=== PATIENT | female | born 1970 | race Caucasian/White ===

== ENCOUNTER 2019-04-15 09:04 | Outpatient (CLI) | payer BC ==
[2019-04-15 12:16] LABS: Hemoglobin 14.5 g/dL (12.0-16.0); Mean Corpuscular HGB CONC 32.7 g/dL (32.0-36.0); Mean Corpuscular Hemoglobin 30.4 pg (27.0-31.0); Mean Corpuscular Volume 92.8 fL (78.0-98.0); Mean Platelet Volume 8.8 fL (7.4-10.4); Platelet Count 272 thou/uL (130-400); RBC Distribution Width 11.6 % (11.5-14.5); Red Blood Cell (RBC) Count 4.78 mill/uL (4.20-5.40); White Blood Cell (WBC) Count 6.4 thou/uL (4.8-10.8)
[2019-04-15 12:33] LABS: Anion Gap 13 mmol/L (10-20); BUN (Urea Nitrogen) 12 mg/dL (7.0-18.7); Calc. Creatinine Clearance 0 mL/min (70-130); Calcium 9.7 mg/dL (7.8-10.44); Carbon Dioxide 23 mmol/L (22-29); Chloride 105 mmol/L (98-107); Estimated GFR-MDRD 67; Glucose 111 mg/dL (70-105); Potassium 4.1 mmol/L (3.5-5.1); Sodium 137 mmol/L (136-145)
[2019-04-15 12:38] LABS: BHCG - Serum Negative (NEGATIVE); Pregs Control Background? CLEAR/WHITE (CLR/WHITE); Pregs Control Bar Appear? YES (CONTROL BAR)
== END 2019-04-15 09:05 | disposition home or self-care (01) ==
LOC: LABBT 09:04
PROVIDERS: ATTEND Obstetrics & Gynecology
DX: Z01.812 Encounter for preprocedural laboratory examination (principal); D06.9 Carcinoma in situ of cervix, unspecified
CPT/HCPCS: 80048; 84703; 85027

== ENCOUNTER 2019-04-15 10:00 | Inpatient (IN) | payer BC ==
[2019-04-15 11:03] VITALS: BMI 25.1
[2019-04-18] MEDS ORDERED: Gabapentin 300 MG CAP ONE (06:08)
[2019-04-18] MEDS ORDERED: Famotidine/PF 20 mg/2ml Vial ONE (06:08)
[2019-04-18] MEDS ORDERED: CeleCOXIB 100 MG CAP ONE (06:08)
[2019-04-18] MEDS ORDERED: Midazolam HCl 2 mg/2 ml Vial ONE ×2 (06:53→07:24)
[2019-04-18] MEDS ORDERED: Fentanyl 100 MCG/2 ML VIAL ONE ×2 (06:53→09:51)
[2019-04-18] MEDS ORDERED: Bupivacaine HCl 0.5%/Epinephrine 1:200,000/PF 30 ml Vial ONE (06:58)
[2019-04-18] MEDS ORDERED: Zolpidem Tartrate 5 MG TAB PO PRN (09:30)
[2019-04-18] MEDS ORDERED: Ondansetron PF 4 MG/2 ML Vial IVP PRN (09:30)
[2019-04-18] MEDS ORDERED: diphenhydrAMINE 25 MG CAP PO PRN (09:30)
[2019-04-18] MEDS ORDERED: Simethicone Chewable 80 MG TAB PO PRN (09:30)
[2019-04-18] MEDS ORDERED: Promethazine HCl 25 MG/ML VIAL IM PRN ×2 (09:30→09:41)
[2019-04-18] MEDS ORDERED: HYDROcodone/Acetaminophen 5/325 mg Tablet PO PRN ×2 (09:30)
[2019-04-18] MEDS ORDERED: Morphine 4 MG/ML VIAL SLOW IVP PRN (09:30)
[2019-04-18] MEDS ORDERED: Bisacodyl 10 MG SUPP PR PRN (09:30)
[2019-04-18] MEDS ORDERED: Ondansetron HCl/PF 4 MG/2 ML Vial IVP PRN (09:41)
[2019-04-18] MEDS ORDERED: Promethazine HCl 25 MG/ML VIAL SLOW IVP PRN (09:41)
[2019-04-18] MEDS ORDERED: Albuterol Sulfate 1.25 MG/3 ML NEB INH SCH (09:45)
[2019-04-18] MEDS ORDERED: Promethazine HCl 25 MG/ML VIAL ONE (10:19)
--- NOTE | 2019-04-18 10:51 | OP ---
DATE OF PROCEDURE: 04/18/2019 PREOPERATIVE DIAGNOSES: 1. Postcoital bleeding. 2. Cervical intraepithelial neoplasia 2 to 3. POSTOPERATIVE DIAGNOSES: 1. Postcoital bleeding. 2. Cervical intraepithelial neoplasia 2 to 3. PROCEDURE PERFORMED: Robotic-assisted total laparoscopic hysterectomy with a bilateral salpingectomy. SOLUTION PROFESSIONAL: Samantha Haley PA-C COMPLICATIONS: None. ESTIMATED BLOOD LOSS: 100 mL. IV FLUIDS: 2000 mL. URINARY OUTPUT: 450 mL of clear urine. INDICATIONS FOR PROCEDURE: Ms. Calli Espinoza is a 48-year-old, G2, P3, who underwent an evaluation for postcoital bleeding. The patient has a history of an endometrial ablation and began having postcoital bleeding. She underwent a Pap smear followed by a colposcopy, found to have LSIL along the cervix and also very small fragments at HSIL in the endocervical canal. She underwent 2 endometrial biopsies, which were both unsuccessful likely due to her history of endometrial ablation. The patient was counseled on options regarding her BERHANE 2 to 3. She was offered the option of a cervical conization with a hysteroscopy, D and C to fully evaluate her bleeding. Due to her concern of the cervical dysplasia, the patient requested to have a hysterectomy. I did discuss the normal sequential steps regarding her pathology. However, she requested a hysterectomy. The patient was then scheduled for a robotic-assisted total laparoscopic hysterectomy with bilateral salpingectomy. She prefers ovarian conservation. PROCEDURE IN DETAIL: The patient was brought to the operating room. She was placed under general anesthesia. The patient was placed in dorsal lithotomy position using [place] stirrups. She was prepped and draped in sterile fashion. An official time-out was performed. She was given Ancef for surgical prophylaxis. A single-sided speculum was placed in the vagina. The anterior aspect of the cervix was grasped using a single-tooth tenaculum. The uterus was sounded to approximately 6 to 7 cm. The cervix was then sequentially dilated. The uterine sound was then reintroduced and then advanced up to approximately 9 to 10 cm. A 10-cm MARITZA manipulator was then inserted with a 4 cm cup and appropriately secured to the ectocervix and the instruments were then removed. A Lucas catheter was placed. Gloves were changed. Attention was turned to the abdominal portion. A supraumbilical incision was made using the scalpel. The Veress needle was inserted. The intraabdominal pressure was normal with insufflation of carbon dioxide. A 12-mm trocar was then placed at this site. The patient was placed in Trendelenburg position. Cloth Classer ports were placed using two robotic ports; one on the right and one on the left aspect of the abdomen. An additional museum assistant port on the right aspect of the abdomen. The pelvic anatomy was surveyed. There was a perforation of the uterine manipulator at the fundus of the uterus. It did impede the ability to manipulate the uterus well and the uterus was obviously smaller than the second uterine sounds. Therefore, I re-evaluated the vaginal exam, removed the 10-cm MARITZA manipulator and replaced it with a 6 cm length all with the same technique to improve mobility of the uterus during her surgery. The robot was then docked to the patient and instruments were inserted. Attention was turned to the left aspect. The left salpingectomy was performed distally to proximally completely removing the fallopian tube. The left round ligament was then coagulated multiple times and transected. The round ligament and surrounding tissue were stretched likely due to her history of having twins. The utero-ovarian ligament was then coagulated multiple times and transected. This allowed entrance into the broad ligament. The anterior leaf of the broad ligament was undermined and transected allowing inferior reflection of the bladder on the left aspect. The posterior leaf of the broad ligament and peritoneum was very adherent to the vasculature, so unable to be undermined and transected. These had a fibrotic appearance. Attention was then turned over to the right aspect. The right fallopian tube was completely removed performing a salpingectomy. The right round ligament was coagulated multiple times and transected. The right utero-ovarian ligament was also coagulated multiple times and transected. The entrance into the broad ligament on the right side was performed. The anterior leaf of the right broad ligament was undermined and transected allowing inferior reflection of the bladder. An attention was turned anteriorly also performing additional dissection anteriorly to reflect the bladder. The posterior leaf of the peritoneum was then undermined and transected down towards the level of the uterosacral ligament on the right side. The uterine vessels on the right aspect were coagulated multiple times and transected creating hemostasis. The left uterine vessels were further skeletonized and coagulated multiple times and also transected. There was areas of generalized oozing along the left side, which were controlled with cautery. In general, there appeared to be additional amount of oozing along the vaginal colpotomy cap as well as along the fibrotic tissue that was dissected posteriorly. The vessels were again coagulated multiple times to achieve hemostasis bilaterally. The colpotomy was performed in a circumferential fashion. The manipulator, uterus and cervix were then delivered through the vagina. The vaginal cuff was cauterized in several locations to achieve hemostasis and the pelvis was irrigated and cleared of all clot and debris. The vaginal cuff was closed in a running fashion using 2-0 Stratafix suture. There was an area along the left aspect of the cuff with just generalized oozing, no direct arterial bleeding. The area was cauterized and then Tisseel was placed along this aspect. The remainder of the pelvis was irrigated and cleared of clot and debris. The abdominal pressure was decreased, noting no bleeding from the left aspect of the vaginal cuff after the Tisseel was applied. The suture and instruments were then removed. The robot was undocked from the patient. The patient was taken out of Trendelenburg position. The abdomen was deflated, and the trocars were removed. The 12-mm camera port was closed using 0 Vicryl. The skin was closed using 4-0 Monocryl and Dermabond. There were no complications at the end of the procedure. All counts were correct x2. The patient was extubated without difficulty. Job ID: [id number]
[2019-04-18] MEDS ORDERED: Ketorolac Tromethamine 30 MG/ML VIAL IVP SCH (12:00)
[2019-04-18] MEDS: Sodium Chloride 0.9% 1,000 ML IV SCH ×2 (12:33→17:38)
[2019-04-18] MEDS: Ketorolac Tromethamine 30 MG/ML VIAL IVP SCH ×2 (17:02→21:41)
[2019-04-18] MEDS ORDERED: Topiramate 25 MG TAB PO SCH (21:00)
[2019-04-18] MEDS ORDERED: DULoxetine 30 MG CAP PO SCH (21:00)
[2019-04-19] MEDS: Sodium Chloride 0.9% 1,000 ML IV SCH (02:12)
[2019-04-19] MEDS: Ketorolac Tromethamine 30 MG/ML VIAL IVP SCH (03:32)
[2019-04-19 05:41] LABS: Hemoglobin 12.4 g/dL (12.0-16.0); Mean Corpuscular HGB CONC 33.1 g/dL (32.0-36.0); Mean Corpuscular Hemoglobin 30.5 pg (27.0-31.0); Mean Corpuscular Volume 92.1 fL (78.0-98.0); Mean Platelet Volume 8.5 fL (7.4-10.4); Platelet Count 255 thou/uL (130-400); RBC Distribution Width 11.5 % (11.5-14.5); Red Blood Cell (RBC) Count 4.08 mill/uL (4.20-5.40); White Blood Cell (WBC) Count 9.7 thou/uL (4.8-10.8)
[2019-04-19 05:56] LABS: Anion Gap 11 mmol/L (10-20); BUN (Urea Nitrogen) 8 mg/dL (7.0-18.7); Calc. Creatinine Clearance 105 mL/min (70-130); Calcium 8.6 mg/dL (7.8-10.44); Carbon Dioxide 22 mmol/L (22-29); Chloride 110 mmol/L (98-107); Estimated GFR-MDRD 71; Glucose 108 mg/dL (70-105); Sodium 139 mmol/L (136-145)
[2019-04-19] MEDS ORDERED: Ibuprofen 800 MG TAB PO SCH ×4 (08:00→14:00)
[2019-04-19 08:06] VITALS: BP 118/70; TEMP 97.8
--- NOTE | 2019-04-19 08:26 | PDOC.EVN ---
Event Note - Event Note Event Note: Pt seen and evaluated on Post op day 1. Pt has been up and ambulatory. She is voiding without difficulty. She has been passing gas. Pain is well controlled. She is eating and drinking normally. No leg pain, swelling, or SOB. CBC/BMP this am reviewed and WNL. Pathology pending. VSS, Afebrile. Pt up and ambulatory in the room. Pt well appearing and in no discomfort or distress. Normal respiratory rate. Abdomen soft, non distended, incisions dry and intact. No lower extremity swelling or tenderness. Pt is neurologically at baseline. Pt s/p RATLH BS. PT is doing very well and pain is well controlled. Pt has already picked up rx for motrin and norco. She has 2 week f/u scheduled with Dr. Cheng. Discharge planning discussed and all questions answered.
--- NOTE | 2019-04-19 09:18 | DIS ---
DATE OF ADMISSION: 04/18/2019 DATE OF DISCHARGE: 04/19/2019 ADMISSION DIAGNOSIS: Postoperative pain control, status post robotic-assisted total laparoscopic hysterectomy with bilateral salpingectomy. BRIEF HOSPITAL COURSE: Ms. Calli Espinoza is a 48-year-old, G2, P3, who underwent a robotic-assisted total laparoscopic hysterectomy with bilateral salpingectomy, postop day #1. Her intraoperative and postoperative course were benign. Her labs and vitals are stable. She is meeting postoperative requirements for discharge to home. DISPOSITION: Discharge home. ACTIVITY RESTRICTIONS: Pelvic rest. No heavy lifting, pushing, or pulling x6 weeks. MEDICATIONS: 1. [place] 5/325 one tab every 6 hours p.r.n. pain #30 with zero refills. 2. Motrin 800 mg one tablet every 8 hours p.r.n. pain #60 with zero refills. FOLLOWUP: Follow up in 2 weeks. Job ID: [id number] MTDD
== END 2019-04-19 08:55 | disposition home or self-care (01) | DRG 741 ==
LOC: SURG A 04-18 06:01 → 3SE 04-18 11:12
PROVIDERS: ADMIT Obstetrics & Gynecology; ATTEND Obstetrics & Gynecology
PROC: 0UT94ZZ Resection of Uterus, Percutaneous Endoscopic Approach (ICD-10-PCS; principal; 2019-04-18)
PROC: 0UT74ZZ Resection of Bilateral Fallopian Tubes, Percutaneous Endoscopic Approach (ICD-10-PCS; 2019-04-18)
PROC: 8E0W4CZ Robotic Assisted Procedure of Trunk Region, Percutaneous Endoscopic Approach (ICD-10-PCS; 2019-04-18)
DX: D06.9 Carcinoma in situ of cervix, unspecified (principal); N93.0 Postcoital and contact bleeding
CPT/HCPCS: 36415; 80048; 84703; 85027; 86850; 86900; 86901; 88307; J0131; J0670; J0690; J1885; J2250; J2550; J3010; S0028

== ENCOUNTER 2021-02-08 09:07 | Outpatient (CLI) | payer BC | END 2021-02-08 09:08 | disposition home or self-care (01) | LOC: TBSIIMAG 09:07 | PROVIDERS: ATTEND Surgery | DX: M54.5 Low back pain (principal); M47.816 Spondylosis without myelopathy or radiculopathy, lumbar region; M47.817 Spondylosis without myelopathy or radiculopathy, lumbosacral region | CPT/HCPCS: 72100; 72148 ==

== ENCOUNTER 2022-07-16 10:36 | Outpatient (CLI) | payer BC | END 2022-07-16 10:37 | disposition home or self-care (01) | LOC: TBSIIMAG 10:36 | PROVIDERS: ATTEND Surgery | DX: M53.3 Sacrococcygeal disorders, not elsewhere classified (principal); M51.26 Other intervertebral disc displacement, lumbar region | CPT/HCPCS: 72148 ==